=== PATIENT | female | born 1975 | race Caucasian/White ===

== ENCOUNTER 2023-09-30 11:14 | Outpatient (REF) | payer OTHER, MEDICAID, SELFPAY ==
[2023-09-30 14:17] LABS: MANUAL DIFF FLAG NO
[2023-09-30 14:20] LABS: Basophils Absolute Auto 0.1 X10*3/uL (0.0-0.2); Basophils Percent Auto 0.6 % (0-2); Eosinophils Absolute Auto 0.2 X10*3/uL (0.0-0.4); Hematocrit 40.5 % (37.0-47.0); Hemoglobin 12.7 g/dl (12.0-16.0); Imm Gran Abs Auto 0.02 X10*3/uL (0.00-0.03); Imm Gran Pct Auto 0.2 % (0.0-0.4); Lymphocytes Absolute Auto 2.9 X10*3/uL (1.2-4.9); Lymphocytes Percent Auto 35.7 % (20-40); Mean Corpuscular HGB Conc 31.4 g/dl (31.0-35.0); Mean Corpuscular Hemoglobin 26.2 pg (27.0-33.0); Mean Corpuscular Volume 83.5 fL (80.0-98.0); Mean Platelet Volume 10.5 fL (9.4-12.3); Monocytes Absolute Auto 0.5 X10*3/uL (0.1-1.2); Neutrophils Absolute Auto 4.4 x10*3/uL (2.0-8.3); Neutrophils Percent Auto 54.5 % (45-73); Platelet Count 412 X10*3/uL (160-400); Red Blood Count 4.85 X10*6/uL (4.20-5.50); Red Cell Distribution Width 15.7 % (11.0-16.0); White Blood Count 8.1 X10*3/uL (4.8-10.8)
[2023-09-30 14:45] LABS: Anion Gap 14 (12-20); Blood Urea Nitrogen 19 mg/dL (9-16); Calcium 9.8 mg/dL (8.4-10.2); Carbon Dioxide 17 mmol/L (22-29); Chloride 111 mmol/L (96-108); Cholesterol 265 mg/dL (<200); Estimated Glomerular Filt Rate > 60; Glucose Random 106 mg/dL (60-115); HDL Cholesterol 65 mg/dL (>40); LDL Cholesterol Calculated 175 mg/dL (<100); Potassium 3.7 mmol/L (3.3-5.1); Sodium 138 mmol/L (135-145); Triglycerides 128 mg/dL (<150)
[2023-09-30 14:50] LABS: TSH reflex Free T4 1.44 uIU/mL (0.32-4.0)
== END 2023-09-30 11:15 | disposition home or self-care (01) ==
LOC: HO.CHCLDS 11:14
PROVIDERS: Visit Provider Internal Medicine
DX: Z00.00 Encounter for general adult medical examination without abnormal findings (principal); E66.01 Morbid (severe) obesity due to excess calories; Z68.35 Body mass index [BMI] 35.0-35.9, adult
CPT/HCPCS: 36415; 80048; 80061; 84443; 85025

== ENCOUNTER 2023-11-18 11:22 | Outpatient (REF) | payer OTHER, MEDICAID, SELFPAY ==
[2023-11-18 14:04] LABS: MANUAL DIFF FLAG NO
[2023-11-18 14:08] LABS: Basophils Absolute Auto 0.1 X10*3/uL (0.0-0.2); Basophils Percent Auto 0.5 % (0-2); Eosinophils Absolute Auto 0.2 X10*3/uL (0.0-0.4); Eosinophils Percent Auto 1.8 % (0-4); Hematocrit 39.9 % (37.0-47.0); Hemoglobin 12.2 g/dl (12.0-16.0); Imm Gran Abs Auto 0.04 X10*3/uL (0.00-0.03); Imm Gran Pct Auto 0.4 % (0.0-0.4); Lymphocytes Absolute Auto 2.6 X10*3/uL (1.2-4.9); Lymphocytes Percent Auto 27.1 % (20-40); Mean Corpuscular HGB Conc 30.6 g/dl (31.0-35.0); Mean Corpuscular Hemoglobin 24.9 pg (27.0-33.0); Mean Corpuscular Volume 81.4 fL (80.0-98.0); Mean Platelet Volume 9.9 fL (9.4-12.3); Monocytes Absolute Auto 0.6 X10*3/uL (0.1-1.2); Monocytes Percent Auto 6.1 % (2-11); Neutrophils Absolute Auto 6.1 x10*3/uL (2.0-8.3); Neutrophils Percent Auto 64.1 % (45-73); Platelet Count 375 X10*3/uL (160-400); Red Cell Distribution Width 15.6 % (11.0-16.0); White Blood Count 9.5 X10*3/uL (4.8-10.8)
== END 2023-11-18 11:23 | disposition home or self-care (01) ==
LOC: HO.CHCLDS 11:22
PROVIDERS: Visit Provider Internal Medicine
DX: R05.1 Acute cough (principal)
CPT/HCPCS: 36415; 85025

== ENCOUNTER 2023-11-18 12:47 | Outpatient (REF) | payer OTHER, MEDICAID, SELFPAY ==
--- NOTE | ~2023-11-18 | XR_ITS ---
EXAMINATION: XR CHEST CLINICAL INFORMATION: Acute cough COMPARISON: None available. TECHNIQUE: 2 views of the chest were obtained. FINDINGS: No significant abnormality is noted involving the heart, lungs, mediastinum, bony thorax or soft tissues. XR/XR chest 2V IMPRESSION: Unremarkable examination.
== END 2023-11-18 12:48 | disposition home or self-care (01) ==
LOC: HO.HMGCX 12:47
PROVIDERS: PCP Internal Medicine; Visit Provider Internal Medicine
DX: R05.1 Acute cough (principal)
CPT/HCPCS: 71046

== ENCOUNTER 2023-11-25 07:59 | Outpatient (AMB) | payer OTHER, MEDICAID, SELFPAY ==
--- NOTE | 2023-11-25 08:03 | MHC.OFFVIS ---
Intake Vital Signs 11/25/23 08:06 Height 5 ft 4 in Weight 263 lb BMI 45.1 BP 122/72 Blood Pressure Location Lt brachial Position Sitting Pulse 83 Intake Visit Reasons: Colonosocopy Screening Intake Note: New consult for 3rd pre colonoscopy screening. Patient cc: H pylori positive in the pass, and IBS symptoms. Bisque Placer Required: No Accompanied by: Self / Same As Patient Allergies No Known Allergies Allergy (Verified 11/25/23 08:03) Medication List - Last Reconciled 11/25/23 by Cathy Sarmiento PA-C albuterol sulfate 90 mcg/actuation (ProAir HFA) 2 puffs inhalation Q4-6H PRN baclofen 10 mg PO DAILY baclofen 10 mg PO BEDTIME ibbfspjzen-deeptlc-lckywqul 50-325-40 mg 1 tab PO Q4-6H PRN cetirizine (Zyrtec) 10 mg PO DAILY PRN clonidine HCl 0.2 mg PO BID fluticasone propionate 50 mcg/actuation 1 spray intranasal DAILY hydroxyzine HCl 50 mg PO TID hyoscyamine sulfate ER 0.375 mg PO Q12H loratadine 10 mg PO DAILY meloxicam 7.5 mg PO DAILY nystatin 1 appl topical DAILY olopatadine 0.1% 1 drp ophthalmic (eye) BID omega-3 fatty acids 1,000 mg PO DAILY omeprazole 20 mg PO DAILY omeprazole 20 mg PO DAILY onabotulinumtoxinA (Botox) IM ondansetron HCl 4 mg PO Q8H ondansetron HCl 4 mg PO Q6H polyethylene glycol 3350 17 grams PO DAILY pseudoephedrine HCl (Sudafed) 30 mg PO Q4-6H PRN risperidone 1 mg PO DAILY rizatriptan 10 mg PO Q2-4H PRN topiramate (Topamax) 50 mg PO BID trazodone 50 mg PO BEDTIME PRN HPI HPI Comments History of Present Illness Details A 48 y/o female hx colonoscopy as well as EGD--at [facility]-and - more than 5 years ago- no polyps, no pud Father colon cancer-in his 70s Bowels- fluctuate-been this way for years in year she associates with her anxiety Acid reflux- not taking ppi- eats fair amount of chocolate as well lot coffee- No smoke, drinking, work- She is homeless- living now with younger brother- many at home social issues- domestic-problems with her older son She is due to have shoulder surgery and of November No N/V/D/ abdominal pain PFSH Medical History (Updated 11/25/23 @ 12:02 by Cathy Sarmiento PA-C) IBS (irritable bowel syndrome) Surgical History History of esophagogastroduodenoscopy (EGD) Hx of colonoscopy Family History Father Cancer Mother Asthma Allergy Arthritis Depression Anxiety Vasculitis Family/Other Lupus Heart problem Diabetes Maternal Grandmother Parkinsons disease Social History (Updated 11/25/23 @ 08:34 by Cathy Sarmiento PA-C) Alcohol intake: never Patient Tobacco Use Status: Never used Tobacco Current occupational status: unemployed Review of Systems Const All systems reviewed & are unremarkable except as noted in HPI and below Card Denies chest pain, Denies chest pain at rest, Denies dyspnea and Denies dyspnea on exertion Resp Denies dyspnea and Denies dyspnea on exertion GI Denies abdominal pain, Denies hematochezia and Reports heartburn Musc Reports back pain Psych Reports abnormal sleep pattern, Reports anxiety, Reports depression, Denies homicidal ideation and Denies suicidal ideation Physical Exam Vital Signs: Last Vital Signs Pulse 83 11/25/23 08:06 BP 122/72 11/25/23 08:06 BMI result Body Mass Index 45.1 Const General: cooperative and comfortable Nutritional Appearance: overweight Orientation/consciousness: patient oriented x3 Limitations: no limitations Eyes Sclerae: sclerae normal Resp Effort & Inspection: normal respiratory effort and able to speak in complete sentences Auscultation: clear to auscultation bilaterally, no rales, no rhonchi and no wheezes Cardio Rate: regular rate Rhythm: regular rhythm Heart sounds: S1 normal heart sound present and S2 normal heart sound present GI Inspection: Yes obesity Palpation (GI): Soft to palpation and nontender Auscultation: normal bowel sounds Skin General skin exam: no rashes or lesions noted Neuro General: patient oriented x3 Extrem General: Yes full ROM Psych Appearance: well kempt Speech and movement: Pressured speech present Affect: Anxious affect present Thought process: Flight of ideas present Thought content: Normal thought content present Assessment & Plan Assessment & Plan (1) Family history of colon cancer: Comment: Father in his 70s Code(s): Z80.0 - Family history of malignant neoplasm of digestive organs (2) IBS (irritable bowel syndrome): Comment: In anxious, social issues, alternating stool pattern, no abdominal pain Code(s): K58.9 - Irritable bowel syndrome without diarrhea Plan: Stress reduction Try to avoid culprits (3) Encounter for screening colonoscopy: Code(s): Z12.11 - Encounter for screening for malignant neoplasm of colon Plan: Will hold off on colon screening until after she has recovered from shoulder surgery However will see her back to be sure she is in stable living condition to accommodate her needs for colon prep (4) Acid reflux: Code(s): K21.9 - Gastro-esophageal reflux disease without esophagitis Plan: Reflux recall PPI daily consistent Plan Hold off on colonoscopy-needs to have adequate living situation pantoprazole See back after surgery further discuss colonoscopy progress/ reflux precautions reviewed Pantoprazole 20 mg daily Encouraged to call with questions or concerns Will follow-up accordingly Medications: New pantoprazole 20 mg PO QAM 30 days 30 tabs 6RF Coding Level of Care Code New Pt Level 3 (48958) Diagnoses Family history of colon cancer Z80.0 IBS (irritable bowel syndrome) K58.9 Encounter for screening colonoscopy Z12.11 Acid reflux K21.9 Time Spent (min) 30
[2023-11-25 08:06] VITALS: BP 122/72; PULSE 83; BMI 45.1
== END 2023-11-25 08:49 | disposition home or self-care (01) ==
PROVIDERS: PCP Internal Medicine; Visit Provider Physician Assistant
DX: Z80.0 Family history of malignant neoplasm of digestive organs (principal); K58.9 Irritable bowel syndrome, unspecified; Z12.11 Encounter for screening for malignant neoplasm of colon; K21.9 Gastro-esophageal reflux disease without esophagitis
CPT/HCPCS: 99203

== ENCOUNTER → 2023-11-25 07:59 | Outpatient (BNVA) | payer OTHER, MEDICAID, SELFPAY | PROVIDERS: PCP Internal Medicine; Visit Provider Physician Assistant ==

== ENCOUNTER 2024-01-15 14:53 | Outpatient (REF) | payer OTHER, MEDICAID, SELFPAY ==
[2024-01-17 20:28] LABS: TS Negative Control Passed; TS Panel A 0; TS Panel B 0; TS Positive Control Passed; TSpotTB Negative (Negative)
== END 2024-01-15 14:54 | disposition home or self-care (01) ==
LOC: HO.CHCLDS 14:53
PROVIDERS: Visit Provider Internal Medicine
DX: Z11.1 Encounter for screening for respiratory tuberculosis (principal)
CPT/HCPCS: 36415; 86481

== ENCOUNTER 2024-02-05 15:13 | Outpatient (REF) | payer OTHER, MEDICAID, SELFPAY ==
[2024-02-05 17:50] LABS: MANUAL DIFF FLAG NO
[2024-02-05 18:02] LABS: Basophils Absolute Auto 0.1 X10*3/uL (0.0-0.2); Basophils Percent Auto 0.6 % (0-2); Eosinophils Absolute Auto 0.2 X10*3/uL (0.0-0.4); Eosinophils Percent Auto 1.9 % (0-4); Hematocrit 42.5 % (37.0-47.0); Hemoglobin 13.2 g/dl (12.0-16.0); Imm Gran Abs Auto 0.03 X10*3/uL (0.00-0.03); Imm Gran Pct Auto 0.3 % (0.0-0.4); Lymphocytes Absolute Auto 4.4 X10*3/uL (1.2-4.9); Lymphocytes Percent Auto 39.2 % (20-40); Mean Corpuscular HGB Conc 31.1 g/dl (31.0-35.0); Mean Corpuscular Hemoglobin 25.1 pg (27.0-33.0); Mean Platelet Volume 10.3 fL (9.4-12.3); Monocytes Absolute Auto 0.9 X10*3/uL (0.1-1.2); Monocytes Percent Auto 7.6 % (2-11); Neutrophils Absolute Auto 5.7 x10*3/uL (2.0-8.3); Neutrophils Percent Auto 50.4 % (45-73); Platelet Count 409 X10*3/uL (160-400); Red Blood Count 5.25 X10*6/uL (4.20-5.50); Red Cell Distribution Width 16.4 % (11.0-16.0); White Blood Count 11.3 X10*3/uL (4.8-10.8)
[2024-02-05 19:49] LABS: Monotest Negative (Negative)
[2024-02-05 23:24] LABS: C Reactive Protein 0.73 mg/dL (< or = 0.50)
== END 2024-02-05 15:14 | disposition home or self-care (01) ==
LOC: HO.CHCLDS 15:13
PROVIDERS: Visit Provider Internal Medicine
DX: R59.0 Localized enlarged lymph nodes (principal)
CPT/HCPCS: 36415; 85025; 86140; 86308

== ENCOUNTER 2024-04-12 08:00 | Outpatient (REF) | payer OTHER, MEDICAID, SELFPAY ==
[2024-04-19 12:49] LABS: HPV mRNA E6/E7 rflx Not Detected (Not Detected)
== END 2024-04-12 08:01 | disposition home or self-care (01) ==
LOC: HO.LNP 08:00
PROVIDERS: Visit Provider Family Medicine
DX: Z13.89 Encounter for screening for other disorder (principal)
CPT/HCPCS: 87624; 88142